=== PATIENT | female | born 1955 | race Two or more races ===

== ENCOUNTER 2024-03-10 07:27 | Inpatient (IN) | payer MEDICARE, MEDICAID ==
[~2024-03-10] VITALS: Ht 152.4 cm; Wt 79.0 kg
[2024-03-10 08:33] LABS: Urine Bacteria FEW /hpf (None Seen); Urine Blood Negative /uL (Negative); Urine Clarity Clear (Clear); Urine Color Straw (Yellow); Urine Protein, UAD Negative (Negative); Urine Specific Gravity 1.005 (1.001-1.035); Urine Urobilinogen Normal (Negative); Urine WBC 8 /hpf (0 - 5)
[2024-03-10 09:17] LABS: Basophils # (auto) 0 10 ^3/uL (0-0.2); Basophils % (auto) 0.8 % (0.0-2.0); Eosinophils # (auto) 0.3 10 ^3/uL (0-0.8); Eosinophils % (auto) 5.3 % (0.0-7.0); Hematocrit 41.5 % (36.0-46.0); Lymphocytes # (auto) 1.7 10 ^3/uL (0.4-5.4); Lymphocytes % (auto) 30.2 % (10.0-50.0); Mean Corpuscular Hemoglobin 31.2 pg (28.0-32.0); Mean Corpuscular Hgb Conc. 33.7 g/dL (32.0-36.0); Mean Corpuscular Volume 92.6 fL (80.0-100.0); Monocytes # (auto) 0.6 10 ^3/uL (0-1.3); Monocytes % (auto) 9.7 % (0.0-12.0); Neutrophils # (auto) 3.1 10 ^3/uL (1.6-8.6); Red Blood Cells 4.48 10^6/uL (4.0-5.20); Red Cell Distribution Width 13.9 % (11.8-14.3); White Blood Cell 5.8 10^3/uL (4.4-10.8)
[2024-03-10 09:43] LABS: Chloride 105 mmol/L (98-107); Potassium 5.2 mmol/L (3.5-5.1); Sodium 135 mmol/L (136-145)
[2024-03-10 09:44] LABS: Anion Gap 5 (5-15); Calcium 9.6 mg/dL (8.5-10.1); Carbon Dioxide 25 mmol/L (20-30)
[2024-03-10 09:49] LABS: BUN/Creatinine Ratio 15.6 (10.0-20.0); Blood Urea Nitrogen 14 mg/dL (9-23); Glucose 130 mg/dL (74-106)
[2024-03-10 10:37] VITALS: PULSE 72; RESP 18; O2SAT 95
[2024-03-10 11:34] LABS: Triglycerides 110 mg/dL (< 150)
[2024-03-10 11:35] LABS: LDL Cholesterol 122 mg/dL (< 100)
[2024-03-10 11:36] LABS: Cholesterol 175 mg/dL (< 200); HDL Cholesterol 50 mg/dL (40-59)
[2024-03-10] MEDS ORDERED: DEXTROSE (50%) 50ML SYRG IV PRN (11:45)
[2024-03-10 12:46] VITALS: BP 160/67; PULSE 69; RESP 18; TEMP 97.4; O2SAT 96
[2024-03-10] MEDS: HYDROcodone-ACET 5/325MG TAB PO PRN (14:35)
[2024-03-10] MEDS: SODIUM CHLORIDE 0.9% 1,000 ML IV SCH (15:42)
[2024-03-10] MEDS: cefTRIAXone 1GM/50ML D5W 50 ML IV ONE (15:42)
[2024-03-10 17:00] VITALS: BP 118/59; PULSE 65; RESP 14; TEMP 98; O2SAT 97
[2024-03-10] MEDS: ACCU-CHEK COMFORT CURVE STRIP VI SCH (17:38)
[2024-03-10] MEDS: InsuLIN REG 1unit/0.01ml Soln (100units/ml) SC SCH (17:39)
[2024-03-10 20:00] VITALS: PULSE 67; RESP 20; O2SAT 100
[2024-03-10] MEDS ORDERED: BACL20TA PO (20:38)
[2024-03-10] MEDS ORDERED: ATOR-47 PO (20:38)
[2024-03-10] MEDS ORDERED: METF-371 PO (20:38)
[2024-03-10] MEDS ORDERED: INSLANTI SC (20:38)
[2024-03-10] MEDS ORDERED: AMLO1TAB22 PO (20:38)
[2024-03-10] MEDS ORDERED: LABE200T33 PO (20:38)
[2024-03-10] MEDS ORDERED: GABA-1250 PO (20:38)
[2024-03-10] MEDS ORDERED: CHOL20007 PO (20:38)
[2024-03-10] MEDS ORDERED: INTE1INJ3 SC (20:38)
[2024-03-10 21:00] VITALS: BP 107/68; PULSE 67; RESP 20; TEMP 97.9; O2SAT 100
[2024-03-11] VITALS (8 sets, daily range): BP systolic 122–154; BP diastolic 66–89; PULSE 66–87; RESP 15–19; TEMP 97.5–98.6; O2SAT 92–95
[2024-03-11 05:14] LABS: Basophils # (auto) 0 10 ^3/uL (0-0.2); Basophils % (auto) 0.9 % (0.0-2.0); Eosinophils # (auto) 0.2 10 ^3/uL (0-0.8); Eosinophils % (auto) 4.2 % (0.0-7.0); Hematocrit 42.4 % (36.0-46.0); Hemoglobin 14.5 g/dL (12.2-16.2); Lymphocytes # (auto) 1.4 10 ^3/uL (0.4-5.4); Lymphocytes % (auto) 25.5 % (10.0-50.0); Mean Corpuscular Hemoglobin 31.5 pg (28.0-32.0); Mean Corpuscular Hgb Conc. 34.1 g/dL (32.0-36.0); Mean Corpuscular Volume 92.5 fL (80.0-100.0); Monocytes # (auto) 0.7 10 ^3/uL (0-1.3); Monocytes % (auto) 12.8 % (0.0-12.0); Neutrophils # (auto) 3.2 10 ^3/uL (1.6-8.6); Neutrophils % (auto) 56.6 % (37.0-80.0); Nucleated Red Blood Cells % 0.1 %; Red Blood Cells 4.58 10^6/uL (4.0-5.20); Red Cell Distribution Width 14.3 % (11.8-14.3); White Blood Cell 5.6 10^3/uL (4.4-10.8)
[2024-03-11 05:30] LABS: Alanine Aminotransferase 28 U/L (7-40); Albumin 3.7 g/dL (3.2-4.8); Alkaline Phosphatase 73 U/L (46-116); Anion Gap 7 (5-15); Aspartate Aminotransferase 28 U/L (13-40); BUN/Creatinine Ratio 16.3 (10.0-20.0); Blood Urea Nitrogen 13 mg/dL (9-23); Carbon Dioxide 23 mmol/L (20-30); Chloride 109 mmol/L (98-107); Glucose 138 mg/dL (74-106); Potassium 4.1 mmol/L (3.5-5.1); Sodium 139 mmol/L (136-145)
[2024-03-11 05:31] LABS: Bilirubin, Total 0.8 mg/dL (0.2-1.0); Total Protein 6.2 g/dL (5.7-8.2)
[2024-03-11] MEDS: ENOXAPARIN SOD 40 MG/0.4 ML SYRINGE SC SCH (08:44)
[2024-03-11] MEDS: cefTRIAXone 1GM/50ML D5W 50 ML IV SCH (08:45)
[2024-03-11 13:11] LABS: COVID19 ANTIGEN SOFIA FIA NEGATIVE (NEGATIVE); Rapid Influenza A Negative (Negative); Rapid Influenza B Negative (Negative)
[2024-03-12] VITALS (8 sets, daily range): BP systolic 132–156; BP diastolic 63–90; PULSE 75–90; RESP 17–18; TEMP 98.1–98.6; O2SAT 90–100
[2024-03-12] MEDS: ACETAMINOPHEN 325 MG TAB PO PRN (16:31)
[2024-03-13] VITALS (8 sets, daily range): BP systolic 135–158; BP diastolic 63–90; PULSE 75–82; RESP 14–20; TEMP 98–98.9; O2SAT 93–95
[2024-03-14] VITALS (7 sets, daily range): BP systolic 130–158; BP diastolic 57–93; PULSE 73–95; RESP 4–18; TEMP 98.1–99.4; O2SAT 93–96
== END 2024-03-14 18:04 | DRG 690 ==
LOC: ER 07:27 → OVERFLOW 11:18 → WEST WING 11:50
PROVIDERS: ADMIT Nurse Practitioner Family; ATTEND Family Medicine
PROC: 05HF33Z Insertion of Infusion Device into Left Cephalic Vein, Percutaneous Approach (ICD-10-PCS; principal; 2024-03-14)
PROC: B54NZZA Ultrasonography of Left Upper Extremity Veins, Guidance (ICD-10-PCS; 2024-03-14)
DX: N39.0 Urinary tract infection, site not specified (principal); E11.9 Type 2 diabetes mellitus without complications; E66.01 Morbid (severe) obesity due to excess calories; Z20.822 Contact with and (suspected) exposure to COVID-19; M54.9 Dorsalgia, unspecified; I10 Essential (primary) hypertension; Z87.440 Personal history of urinary (tract) infections; Z90.5 Acquired absence of kidney; Z68.34 Body mass index [BMI] 34.0-34.9, adult; Z90.710 Acquired absence of both cervix and uterus
CPT/HCPCS: 36415; 74176; 80048; 80053; 80061; 81001; 82607; 82962; 83036; 84443; 84484; 85025; 87040; 87086; 87426; 87804; 97163; G0378; J1815